=== PATIENT | female | born 1975 | race African-American/Black ===

== ENCOUNTER 2017-03-10 15:22 | Emergency (ER) | payer MEDICAID ==
[~2017-03-10] VITALS: Ht 157.5 cm; Wt 81.6 kg
[~2017-03-10 15:22] MED LIST: LIS20T PO
[2017-03-10] MEDS ORDERED: SODIUM CHLORIDE 0.9% 1,000 ML IV ONE ×2 (15:25→20:00)
[2017-03-10] MEDS ORDERED: diphenhdrAMINE HCL 50 MG/1 ML VL IV ONE (15:30)
[2017-03-10 16:25] LABS: Basophils # (auto) 0 uL; Basophils % (auto) 0.3 % (0.0-2.0); Eosinophils # (auto) 0.1 uL; Eosinophils % (auto) 1.2 % (0.0-7.0); Hematocrit 36.4 % (36.0-46.0); Hemoglobin 12.4 g/dL (12.2-16.2); Lymphocytes # (auto) 3.5 uL; Mean Corpuscular Hemoglobin 31.1 pg (28.0-32.0); Mean Corpuscular Volume 91.5 fL (80.0-100.0); Mean Platelet Volume 8.1 fL (7.4-10.4); Monocytes # (auto) 0.5 uL; Monocytes % (auto) 5.3 % (0.0-12.0); Neutrophils # (auto) 4.8 uL; Neutrophils % (auto) 54.2 % (37.0-80.0); Platelet Count (auto) 292 10^3/uL (140-450); Red Cell Distribution Width 13.7 % (11.6-16.0); White Blood Cell 8.9 10^3/uL (4.4-10.8)
[2017-03-10 16:47] LABS: Urine Bilirubin Negative (Negative); Urine Blood Negative /uL (Negative); Urine Ca Oxalate Crystal MOD (None Seen); Urine Color Yellow (Yellow); Urine Glucose TRACE mg/dL (Normal); Urine Ketone Negative (Negative); Urine Mucus FEW (None Seen); Urine Nitrite Negative (Negative); Urine RBC <1 /hpf (0 - 4); Urine Squamous Epithelial Cell FEW /hpf (<5); Urine Urobilinogen Normal (Negative)
[2017-03-10 16:50] LABS: Albumin 3.2 g/dL (3.4-5.0); BUN/Creatinine Ratio 20.3; Calcium 8.6 mg/dL (8.5-10.1); Potassium 3.3 mmol/L (3.5-5.1)
[2017-03-10 16:53] LABS: Bilirubin, Total 0.1 mg/dL (0.2-1.0); Total Protein 6.9 g/dL (6.4-8.2)
[2017-03-10] MEDS ORDERED: methylPREDNISolone SOD SUCC 125 MG/2 ML VL IV ONE (18:30)
[2017-03-10] MEDS ORDERED: ACETAMINOPHEN/CODEINE#3 (300/30mg) TAB PO ONE (20:00)
[2017-03-10] MEDS ORDERED: FAMOTIDINE (10MG/ML) 2ML VL IV ONE (20:00)
[2017-03-10 23:18] VITALS: BP 147/90
== END 2017-03-10 23:04 | disposition home or self-care (01) ==
LOC: EDBD 15:22 → EDUNIT# 15:22 → ER 15:24
DX: T78.3XXA Angioneurotic edema, initial encounter (principal); T78.40XA Allergy, unspecified, initial encounter; F17.210 Nicotine dependence, cigarettes, uncomplicated; I10 Essential (primary) hypertension
CPT/HCPCS: 36415; 80053; 81001; 84702; 85025; 96361; 96374; 96375; 99284; J1200; J2930; J3490; J7030

== ENCOUNTER 2017-09-20 09:39 | Emergency (ER) | payer MEDICAID ==
[~2017-09-20] VITALS: Ht 157.5 cm; Wt 81.6 kg
[2017-09-20 11:08] VITALS: BP 176/115
[2017-09-20] MEDS ORDERED: KETOROLAC TROMETH 60MG/2ML VIAL IM ONE (11:45)
== END 2017-09-20 12:06 | disposition home or self-care (01) ==
LOC: ER 09:39
DX: N39.0 Urinary tract infection, site not specified (principal); I10 Essential (primary) hypertension; F17.210 Nicotine dependence, cigarettes, uncomplicated
CPT/HCPCS: 96372; 99283; J1885

== ENCOUNTER 2018-03-28 18:30 | Emergency (ER) | payer MEDICAID, OTHER ==
[~2018-03-28] VITALS: Ht 157.5 cm; Wt 82.6 kg
[2018-03-28] MEDS ORDERED: SODIUM CHLORIDE 0.9% 1,000 ML IVB ONE (18:39)
[2018-03-28] MEDS ORDERED: ONDANSETRON HCL 4 MG/2 ML VIAL IV ONE (18:45)
[2018-03-28] MEDS ORDERED: MORPHINE SULF INJ 2 MG/ML SYRINGE 1ML IV ONE (18:45)
[2018-03-28 19:32] LABS: Basophils # (auto) 0.1 uL; Basophils % (auto) 0.5 % (0.0-2.0); Eosinophils # (auto) 0.1 uL; Eosinophils % (auto) 0.4 % (0.0-7.0); Hematocrit 35.2 % (36.0-46.0); Hemoglobin 11.9 g/dL (12.2-16.2); Lymphocytes # (auto) 3.4 uL; Lymphocytes % (auto) 24.2 % (10.0-50.0); Mean Corpuscular Hgb Conc. 33.7 g/dL (32.0-36.0); Mean Corpuscular Volume 91.9 fL (80.0-100.0); Monocytes # (auto) 0.7 uL; Monocytes % (auto) 4.9 % (0.0-12.0); Neutrophils # (auto) 9.9 uL; Nucleated Red Blood Cells % 0.1 %; Platelet Count (auto) 328 10^3/uL (140-450); Red Blood Cells 3.83 10^6/uL (4.0-5.20); Red Cell Distribution Width 13.6 % (11.8-14.3); White Blood Cell 14.1 10^3/uL (4.4-10.8)
[2018-03-28 19:50] LABS: Albumin 3.2 g/dL (3.4-5.0); BUN/Creatinine Ratio 18.8; Calcium 9.1 mg/dL (8.5-10.1); Potassium 3.6 mmol/L (3.5-5.1)
[2018-03-28 19:55] LABS: Bilirubin, Total 0.7 mg/dL (0.2-1.0); Total Protein 7.8 g/dL (6.4-8.2)
[2018-03-28] MEDS ORDERED: MORPHINE SULFATE 4 MG/ML SYR/VIAL ONE (21:25)
[2018-03-28] MEDS ORDERED: MEPERIDINE HCL (50 MG/ML) 1 ML VIAL IV ONE (23:00)
[2018-03-29] MEDS ORDERED: metroNIDAZOLE 500 MG TAB ONE (00:58)
[2018-03-29] MEDS ORDERED: CIPROFLOXACIN 400MG/200ML 200 ML IV ONE (01:10)
[2018-03-29 01:31] VITALS: BP 122/84
[2018-03-29] MEDS ORDERED: HYDROcodone-ACET 10/325MG TAB ONE (01:39)
== END 2018-03-29 03:28 | disposition home or self-care (01) ==
LOC: EDBD 18:30 → ER 18:35
DX: R10.31 Right lower quadrant pain (principal); R11.10 Vomiting, unspecified; I10 Essential (primary) hypertension; F17.210 Nicotine dependence, cigarettes, uncomplicated
CPT/HCPCS: 36415; 74176; 76856; 80053; 83690; 84702; 85025; 94761; 96361; 96374; 96375; 99285; J0744; J2175; J2270; J2405; J7030

== ENCOUNTER 2021-01-03 12:59 | Emergency (ER) | payer MEDICAID ==
[~2021-01-03] VITALS: Ht 157.5 cm; Wt 81.6 kg
[~2021-01-03 12:59] MED LIST changes: +AML5T PO; +ASPI-378 PO; +ATO40T PO; +CLIN300C8 PO; +FAMO20TA10 PO; -LIS20T PO; +LOSA-39 PO; +MET50T PO; +METH4PAK PO; +NEOM1SUS20 OP
[2021-01-03 13:06] VITALS: BP 206/115
[2021-01-03 14:04] LABS: Urine Bacteria NONE SEEN /hpf (None Seen); Urine Blood Negative /uL (Negative); Urine Specific Gravity 1.008 (1.001-1.035); Urine WBC 1 /hpf (0 - 5)
[2021-01-03] MEDS ORDERED: cloNIDine HCL 0.1 MG TAB PO ONE (14:45)
== END 2021-01-03 15:51 | disposition home or self-care (01) ==
LOC: ER 12:59
DX: N39.0 Urinary tract infection, site not specified (principal); N76.0 Acute vaginitis; B96.89 Other specified bacterial agents as the cause of diseases classified elsewhere; I10 Essential (primary) hypertension; F17.210 Nicotine dependence, cigarettes, uncomplicated; Z32.02 Encounter for pregnancy test, result negative
CPT/HCPCS: 81001; 81025; 87210